=== PATIENT | male | born 1980 | race African-American/Black ===

== ENCOUNTER 2020-02-16 18:56 | Emergency (ER) | payer OTHER ==
--- NOTE | 2020-02-16 20:57 | ER ---
Nurse's Notes [facility] Name: Joshua Hernandez Age: 39 yrs Sex: Male : 1980 Arrival Date: 02/16/2020 Time: 19:00 Bed 20 Private MD: Diagnosis: Presentation: 02/15 19:09 Chief complaint: Patient states: Left sided chest pain, radiates to straight through to jl7 left shoulder blade, increased pain with movement and coughing. Coronavirus screen: Client denies travel out of the [place] in the last 14 days. At this time, the client does not indicate any symptoms associated with coronavirus-19. Ebola Screen: No symptoms or risks identified at this time. Initial Sepsis Screen: Does the patient meet any 2 criteria? No. Patient's initial sepsis screen is negative. Does the patient have a suspected source of infection? No. Patient's initial sepsis screen is negative. Risk Assessment: Do you want to hurt yourself or someone else? Patient reports no desire to harm self or others. Onset of symptoms was February 14, 2020. Care prior to arrival: None. 19:09 Method Of Arrival: Ambulatory [facility] 19:09 Acuity: AMITA 2 jl7 Triage Assessment: 19:12 General: Appears in no apparent distress. uncomfortable, Behavior is calm, cooperative, jl7 appropriate for age. Pain: Complains of pain in anterior aspect of left upper chest Pain radiates to left scapular area Pain currently is 9 out of 10 on a pain scale. Cardiovascular: Patient's skin is warm and dry. Historical: - Allergies: 19:12 No Known Allergies; jl7 - Home Meds: 19:12 None [Active]; jl7 - PMHx: 19:12 None; jl7 - PSHx: 19:12 Hernia repair; jl7 - Immunization history:: Adult Immunizations up to date. - Social history:: Smoking status: Patient reports the use of cigarette tobacco products, smokes one-half pack cigarettes per day. Assessment: 20:53 Reassessment: ER registration said pt left ER at 2045. ca1 Vital Signs: 19:09 BP 126 / 88; Pulse 84; Resp 17; Temp 98.2; Pulse Ox 96% ; Weight 108.86 kg; Height 5 jl7 ft. 7 in. (170.18 cm); Pain 9/10; 19:09 Body Mass Index 37.59 (108.86 kg, 170.18 cm) jl7 ED Course: 19:00 Patient arrived in ED. bp1 19:12 Triage completed. jl7 19:12 Arm band placed on right wrist. Patient placed in waiting room, Patient notified of jl7 wait time. 20:53 Alex Lozada PA is PHCP. kyung 20:53 Adrian Ash MD is Attending Physician. [facility] 20:54 Patient's name was called from ER lobby. No response. Unable to locate patient. Will ca1 disposition as left without being seen by a provider. Administered Medications: No medications were administered Outcome: 20:55 Patient left the ED. ca1 Signatures: Alex Lozada PA PA jmm Leal, Jahala RN RN jl7 Teresa Guidry RN RN ca1 Meron Feldman bp1
[2020-02-16 21:07] VITALS: BP 126/88; TEMP 98.2; O2SAT 96
--- NOTE | 2020-02-17 07:25 | EKG ---
Test Date: 2020-02-16 Test Time: 19:07:23 Field Care Coordinator: PATRICK MEASUREMENT RESULTS: Intervals: Rate: 82 CO: 188 QRSD: 92 QT: 348 QTc: 406 [place]: P: 42 CO: 188 QRS: -1 T: 23 INTERPRETIVE STATEMENTS: Normal sinus rhythm Moderate voltage criteria for LVH, may be normal variant Borderline ECG No previous ECG available for comparison Electronically Signed On 02-17-20 07:23:59 [employer] by Isaiah Soto
--- NOTE | 2020-02-17 21:30 | EDPHYS ---
Physician Documentation [facility] Name: Joshua Hernandez Age: 39 yrs Sex: Male : 1980 Arrival Date: 02/16/2020 Time: 19:00 Bed 20 Private MD: ED Physician Adrian Ash Historical: - Allergies: 02/15 19:12 No Known Allergies; jl7 - Home Meds: 19:12 None [Active]; jl7 - PMHx: 19:12 None; jl7 - PSHx: 19:12 Hernia repair; jl7 - Immunization history:: Adult Immunizations up to date. - Social history:: Smoking status: Patient reports the use of cigarette tobacco products, smokes one-half pack cigarettes per day. Vital Signs: 19:09 BP 126 / 88; Pulse 84; Resp 17; Temp 98.2; Pulse Ox 96% ; Weight 108.86 kg; Height 5 7 ft. 7 in. (170.18 cm); Pain 9/10; 19:09 Body Mass Index 37.59 (108.86 kg, 170.18 cm) [facility] MDM: 20:59 ED course: Patient eloped from the ED prior to evaluation. [facility] 02/15 20:53 Order name: EKG; Complete Time: 20:54 [facility] 02/15 20:53 Order name: Cardiac monitoring [facility] 02/15 20:53 Order name: EKG - Nurse/Tech [facility] 02/15 20:53 Order name: IV Saline Lock [facility] 02/15 20:53 Order name: Labs collected and sent [facility] 02/15 20:53 Order name: O2 Per Protocol [facility] 02/15 20:53 Order name: O2 Sat Monitoring [facility] Administered Medications: No medications were administered Disposition: 02/16 05:54 Co-signature as Attending Physician, Adrian Ash MD. [facility] Disposition: 02/16/20 20:55 Patient left the facility post triage evaluation and consult. - Patient left due to (see nurse's notes). Signatures: Dispatcher [employer] EDMS Alex Lozada PA PA jmm Leal, Jahala, RN RN [facility] Teresa Guidry RN RN ca1 Holmes, Maurice, MD MD [facility]
== END 2020-02-16 20:55 | disposition left against medical advice (07) ==
LOC: ER 18:56
DX: R69 Illness, unspecified (principal); Z53.21 Procedure and treatment not carried out due to patient leaving prior to being seen by health care provider; F17.210 Nicotine dependence, cigarettes, uncomplicated
CPT/HCPCS: 93005; 99281

== ENCOUNTER 2022-09-05 15:29 | Emergency (ER) | payer OTHER ==
--- OUTSIDE RECORDS SUMMARY | 2022-09-05 15:32 | XMS REPORT | Continuity of Care Document ---
:[address] [facility] t Address [address] [place] [address] Care Team Providers Name Role Phone Sharpless Primary Care Physician Provider, [facility] Attending Clinician Unavailable Christie Hickman Attending Clinician CHRISTIE WEAVER Attending Clinician Unavailable XENIA YUAN Attending Clinician Unavailable Payers Payer Name Policy Type Policy Number Effective Date Expiration Date S ource Problems Condition Condition Condition Status Onset Resolution Last Treating Co mments Source Name Details Category Date Date Treatment Clinician Date No known No known Disease Unive rs active active ity of problems problems [facility] Allergies, Adverse Reactions, Alerts Allergy Allergy Status Severity Reaction(s) Onset Inactive Treating Comm ents Source Name Type Date Date Clinician No Known DA Active U 2018-02 [facility] Allergie 02-15 Pearlan s 00:00: d [address] [facility] NO KNOWN Drug Active Univers ALLERGIE Class ity of S [facility] Social History Social Habit Start Date Stop Date Quantity Comments Source Gender identity Ron Mahan alth Sexual orientation [facility] History of tobacco Smokes tobacco [facility] use daily [facility] Tobacco use and 2019-12-09 2019-12-09 Never used Universit y of exposure 00:00:00 00:00:00 [facility] Cigarettes smoked 2018-12-27 2018-12-27 CORRY Patel current (pack per 00:00:00 00:00:00 Medical Center day) - Reported Alcohol intake 2018-12-27 2018-12-27 Current CORRY Conway es 00:00:00 00:00:00 non-drinker of Medical Ce nter alcohol (finding) Sex Assigned At [birth year] CORRY Pagans 00:00:00 00:00:[address] [facility] Smoking Status Start Date Stop Date Source Never smoked tobacco [facility] Current every day smoker 2019-12-09 [facility] Ordered Filled Start Stop Current Ordering Indication Dosage Frequency Signature Comments Components Source Medication Medication Date Date Medication? Clinician (SIG) Name Name sandy 2019-02 Yes [id number] 250mg Take 1 Univers n 250 mg 02-07 tablet by ity of tablet 00:00: mouth [place] 00 daily. Medical Take 500 Branch mg day 1, then 250 mg days 2 to 5. methylPREDN 2019-02 Yes [id number] Take by Univers ISolone 02-07 mouth ity of (MEDROL, 00:00: SEE-INSTRU Franco as VAHID,) 4 mg 00 CTIONS. Medica l tablets follow [facility] package directions promethazin 2019-02 2020- No [id number] 10mL Take 10 mL Univers e-codeine 02-07 by mouth ity o f 6.25-10 00:00: 05:59 every 8 [place] mg/5 mL 00 :00 (eight) Medical syrup hours as Branch needed for Cough for up to 7 days. Indication s: acute pain Vital Signs Vital Name Observation Time Observation Value Comments Source Systolic blood 2019-12-09 19:07:00 129 mm[Hg] Univer sity of pressure [facility] Diastolic blood 2019-12-09 19:07:00 85 mm[facility]Hg] [facility] 2019-12-09 19:07:00 86 /min [facility] Body temperature 2019-12-09 19:07:00 37.17 Mercedes [facility] Respiratory rate 2019-12-09 19:07:00 18 /min [facility] Body height 2019-12-09 19:07:00 170.2 cm [facility] Body weight 2019-12-09 19:07:00 90.719 kg [facility] BMI 2019-12-09 19:07:00 31.32 kg/m2 [facility] Oxygen saturation in 2019-12-09 19:07:00 97 /min University Arterial blood by [facility] Pulse oximetry Branch Procedures This patient has no known procedures. Plan of Care Planned Activity Planned Date Details Comments Source Future Scheduled Test 2022-11-07 00:00:00 IMM Influenza [facility] Seasonal (>/= 19 yrs) [code = IMM Influenza Seasonal (>/= 19 yrs)] Future Scheduled Test 2021-11-07 00:00:00 IMM Influenza [facility] Seasonal (>/= 19 yrs) [code = IMM Influenza Seasonal (>/= 19 yrs)] Future Scheduled Test 1980-03-18 00:00:00 COVID-19 Vaccine (#1) [facility] [code = COVID-19 Vaccine (#1)] Future Scheduled Test 1980-03-18 00:00:00 COVID-19 Vaccine (#1) [facility] [code = COVID-19 Vaccine (#1)] Future Scheduled Test 1980 00:00:00 Fluoride Varnish [facility] [code = Fluoride Varnish] Encounters Start End Encounter Admission Attending Care Care Encounter Source Date/Time Date/Time Type Type Clinicians Facility Department ID 2019-12-09 2019-12-09 Urgent Provider, [facility] [id number] Univers 13:01:32 13:21:32 [id number] [facility] [id number] Franco as Professio [id number] [place] dical [facility] [address] 2019-12-09 2019-12-09 [facility] [id number] Univers 13:00:00 13:00:00 [facility] Results Test Description Test Time Test Comments Results Result Sour e Comments CT, ABDOMEN 2018-12-27 Reason for FINAL REPORT PATIENT 16:39:00 exam:->BACK ID: [id number] CT PAINWhat is the abdomen and pelvis patient's without contrast sedation History: Left flank requirement?->N pain Comparison: o Sedation none Technique: serial axial imaging was performed without intravenous contrast as per departmental protocol. Multiplanar images are reconstructed and reviewed when indicated. This CT examination is performed using one or more of the following dose reduction techniques: Automated exposure control, adjustment of the mA and /or kV according to patient size, and/or use of iterative reconstruction technique. Findings:Evaluation limited by lack of intravenous contrast. Grossly unremarkable appearance of unenhanced liver, gallbladder, pancreas, spleen, and adrenal glands. No urinary calculus. No hydronephrosis. No apparent bladder wall thickening. No small or large bowel obstruction. No apparent bowel wall thickening. No findings to indicate acute appendicitis. No free fluid or adenopathy. No aggressive osseous lesion. Impression:No acute or additional significant findings in the abdomen or pelvis by unenhanced CT scan. Signed: Jeramie Tatum Verified Date/Time: 12/27/2018 16:39:30 Reading Location: [facility] Diagnostic Imaging Reading Room - [place] [address] US DOPPLER 2018-12-27 Reason for FINAL REPORT PATIENT LEG, LEFT 14:51:00 exam:->left ID: [id number] calf pain INDICATION: Left leg (calf) pain. TECHNIQUE: Ultrasound was performed in the veins of the left leg, including color and spectral Doppler exam and compression of the veins with the ultrasound transducer. COMPARISON: None. FINDINGS:The left common femoral, femoral, popliteal, and upper calf veins demonstrate normal compressibility, color-flow, and waveform. The saphenofemoral confluence is patent. IMPRESSION:No deep venous thrombosis in the left leg. Signed: Jose Bergman Verified Date/Time: 12/27/2018 14:51:01 Reading Location: [facility] Mammo Reading Room W/PLT COUNT & AUTO DIFFERENTIAL 2018-12-27 14:29:00 Test Item Value Reference Range Interpretation Comme nts WHITE BLOOD CELL COUNT (BEAKER) (test code = 775) 18.1 K/ L 4.0- 10.0 H RED BLOOD CELL COUNT (BEAKER) (test code = 761) 5.91 M/ L 4.20-5 .80 H HEMOGLOBIN (BEAKER) (test code = 410) 16.5 GM/DL 13.0-16.8 HEMATOCRIT (BEAKER) (test code = 411) 49.8 % 36.0-50.0 MEAN CORPUSCULAR VOLUME (BEAKER) (test code = 753) 84.3 fL 82. 0-99.0 MEAN CORPUSCULAR HEMOGLOBIN (BEAKER) (test code = 751) 27.9 pg 27.0-33.0 MEAN CORPUSCULAR HEMOGLOBIN CONC (BEAKER) (test code = 752) 33.1 GM/DL 32.0-36.0 RED CELL DISTRIBUTION WIDTH (BEAKER) (test code = 412) 13.0 % 12.0-15.0 PLATELET COUNT (BEAKER) (test code = 756) 283 K/CU MM 150-430 MEAN PLATELET VOLUME (BEAKER) (test code = 754) 10.7 fL 6.0-11 .5 NUCLEATED RED BLOOD CELLS (BEAKER) (test code = 413) 0 /100 WBC 0 -0 (MANUAL DIFFERENTIAL)2018-12-27 14:29:00 Test Item Value Reference Range Interpretation Comments NEUTROPHILS - REL (DIFF) (BEAKER) 83 % (test code = 1359) LYMPHOCYTES - REL (DIFF) (BEAKER) 1 % (test code = 1360) EOSINOPHILS - REL (DIFF) (BEAKER) 3 % (test code = 1362) METAMYELOCYTES-REL (DIFF) (BEAKER) 1 % 0-0 H (test code = 258) BANDS - REL (DIFF) (BEAKER) (test 1 % 0-10 code = 1348) ATYPICAL LYMPHOCYTE - REL (DIFF) 11 % 0-0 H (BEAKER) (test code = 260) NEUTROPHILS - ABS (DIFF) (BEAKER) 15.02 K/ L 1.80-8.00 H (test code = 1365) LYMPHOCYTES - ABS (DIFF) (BEAKER) 0.18 K/ L 1.48-4.50 L (test code = 1366) EOSINOPHILS - ABS (DIFF) (BEAKER) 0.54 K/ L 0.00-0.50 H (test code = 1368) METAMYELOCTYES - ABS (DIFF) 0.18 K/ L 0.00-0.00 H (BEAKER) (test code = 261) BANDS-ABS (DIFF) (BEAKER) (test 0.2 K/ L 0.0-0.8 code = 1349) ATYPICAL LYMPHOCYTES - ABS (DIFF) 1.99 K/ L 0.00-0.00 H (BEAKER) (test code = 263) TOTAL COUNTED (BEAKER) (test code 100 = 1351) BANDS + SEGMENTED NEUTROPHILS 15.20 (BEAKER) (test code = 1352) PLT MORPHOLOGY (BEAKER) (test code Normal = 486) RBC MORPHOLOGY (BEAKER) (test code Normal = 762) TOXIC GRANULATION (BEAKER) (test Present code = 771) BASIC METABOLIC [id number] 14:09:00 Test Item Value Reference Range Interpretation Comments SODIUM (BEAKER) 140 meq/L 135-148 (test code = 381) POTASSIUM (BEAKER) 3.5 meq/L 3.6-5.5 L (test code = 379) CHLORIDE (BEAKER) 104 meq/L 98-106 (test code = 382) CO2 (BEAKER) (test 24 meq/L 20-29 code = 355) BLOOD UREA NITROGEN 11 mg/dL 10-26 (BEAKER) (test code = 354) CREATININE (BEAKER) 1.13 mg/dL 0.50-1.20 (test code = 358) GLUCOSE RANDOM 98 mg/dL 70-110 (BEAKER) (test code = 652) CALCIUM (BEAKER) 10.1 mg/dL 8.5-10.5 (test code = 697) EGFR (BEAKER) (test 88 mL/min/1.73 ESTIMA BATSHEVA GFR IS code = 1092) sq m NOT ACCURATE CREATININE CLEARANCE IN PREDICTING GLOMERULAR FILTRATION RATE . ESTIMATED GFR I S NOT APPLICABLE FOR DIALYSIS PATIEN TS. URINALYSIS W/ [id number] 13:50:00 Test Item Value Reference Range Interpretation Comments COLOR (BEAKER) (test code = 470) Yellow CLARITY (BEAKER) (test code = 469) Clear SPECIFIC GRAVITY UA (BEAKER) (test 1.020 1.001-1.035 code = 468) PH UA (BEAKER) (test code = 467) 8.0 5.0-8.0 PROTEIN UA (BEAKER) (test code = Negative Negative 464) GLUCOSE UA (BEAKER) (test code = Negative Negative 365) KETONES UA (BEAKER) (test code = Negative Negative 371) BILIRUBIN UA (BEAKER) (test code = Negative Negative 462) BLOOD UA (BEAKER) (test code = Negative Negative 461) NITRITE UA (BEAKER) (test code = Negative Negative 465) LEUKOCYTE ESTERASE UA (BEAKER) Negative Negative (test code = 466) UROBILINOGEN UA (BEAKER) (test 1.0 mg/dL 0.2-1.0 code = 463) BACTERIA (BEAKER) (test code = Occasional 517) MUCUS (BEAKER) (test code = 1574) Occasional RBC UA-MANUAL (BEAKER) (test code 5-10 /HPF = 1659) WBC UA-MANUAL (BEAKER) (test code <5 /HPF = 1661) SQUAMOUS EPITHELIAL MANUAL <5 /HPF (BEAKER) (test code = 1663) SOURCE(BEAKER) (test code = 2795) RAD, SPINE, LUMBAR, 2 OR 3 [id number] 13:16:00Reason for exam:->back painFINAL REPORT INDICATION:Low back pain. COMPARISON: None. TECHNIQUE: Lumbar spine radiograph three views. FINDINGS / IMPRESSION:Lumbar alignment is normal. Intervertebral disc spaceis preserved and vertebral body heights maintained. In summary, normal lumbar spine radiograph. Signed: Jose Bergmaneport Verified Date/Time: 12/27/2018 13:16:22 Reading Location: [facility] Reading Room Notes Date/Time Note Provider Source 2018-12-16 10:02:00-00:00 [facility] ([facility]) EMERGENCY PROVIDER REPORT REPORT#:[id number] REPORT STATUS: Signed DATE:12/16/18 TIME:1002 PATIENT: MANUEL WEAVER UNIT #: [id number] ROOM/BED: : 79 AGE: 38 SEX: M PCP PHYS: No Primar y or Family Physician SERVICE AUTHOR: Josr Jimenez MD * ALL edits or amendments must be made on the el ectronic/computer document * HPI-Back Pain Under 40 General Confirmed Patient Yes Patient Type New patient Date/Time Seen by Provider 12/16/18 0954 Presentation Chief Complaint Pain, back Hx Obtained From Patient )( Sudden in Onset? No Onset Occurred Days ago (3) Symptom Duration Since onset Progression since Onset Unchanged Caused by No trauma by history Location L lower back Quality Painful Radiation Leg L, below knee. Migration/Movement None Severity: Onset Mild Severity: Current Mild Associated with Reports: Numbness, lower ext L. Denies: Abdomina l pain, Chest pain, Cough, Fever, Incontinence bladder, Incontinence bowel, Nausea, Vomiting, Weakness, both lower ext. Associated Other Pt denies other symptoms Exacerbated by Nothing Relieved by Nothing Free Text HPI Notes Free Text HPI Notes 38 y/o M with PMHx of HTN p/w L lower ba ck pain x 3 days with radiation down L leg and numbness. Pt. notes similar sxs with hx of sciatica. He took Tylenol #3 with no relief to sxs. Pt. notes sxs previously relieved with steroids. No further sxs were stated. Denies N/V, fev er, abdominal pain, weakness, dysuria, hematuria, bladder incontinence and saddle anest hesia. Portions of this section were scribed by Melanie Espinosa on 12/16/18 at 1012 Review of Systems ROS Statements All systems rev neg except as marked. Basic Review of Systems Basic ROS EYES: No redness, ENT: No sore throat, SKIN: No rash, PSYCH: NL thought content Focused Review of Systems Constitutional Denies: Chills, Fatigue, Fever, Weakness - gener alized. Respiratory Denies: Cough, non-productiv e, Cough, productive, Dyspnea on exertion, Shortness of breath, Wheezing. Cardiovascular Denies: Chest pain, Dyspnea on exertion, Edema, Syncope. GI Denies: Abdominal pain, Diarrhea, Nausea, Vomiti ng. Male Denies: Dysuria, Flank pain. Musculoskeletal Reports: Back pain, Extremity pain. Denies: Extr emity swelling. Hematologic Denies: Bleeding, Bruising. Neurologic Reports: Numbness. Denies: Dizziness, Generalize d weakness, Headache. Portions of this section were scribed by Melanie Espinosa on 12/16/18 at 1002 Past Medical History - Adult Stated Complaint SCIATICA Allergies Coded Allergies: No Known Allergies (12/16/18) Review of Nursing Notes Rev avail, and agree Pt reports no significant: Past surgical history Past Medical History: Reports: Hypertension. Additional Medical History Sciatica Other Social History Local resident, Good social support Ambulatory Status Independent Portions of this section were scribed by Melanie Espinosa on 12/16/18 at 1012 Physical Exam Vital Signs Vital Signs First Documented: Result Date Time Pulse Ox 99 12/16 1001 B/P 163/101 12/16 1002 B/P Mean 121 12/16 1001 O2 Delivery Room air 12/16 1002 Temp 98.6 12/16 1001 Pulse 72 12/16 1002 Resp 18 12/16 1002 Last Documented: Result Date Time Pulse Ox 99 12/16 1001 B/P 163/101 12/16 1001 B/P Mean 121 12/16 1001 O2 Delivery Room air 12/16 1001 Temp 98.6 12/16 1001 Pulse 72 12/16 1001 Resp 18 12/16 1001 Review of Vital Signs Reviewed Focused PE General/Const General/Const Awake, Alert, No acute distress MS Neck Neck Atraumatic, Supple, Full range of motion, No adenopathy Resp/Chest Respiratory/Chest Atraumatic, Breath sounds NL, Breath sounds = bilat, No respiratory distress Cardiovascular Cardiovascular Heart rate NL, Regular rhythm Abdomen/GI Abdomen/GI Atraumatic, Soft, Non-tender MS Back Back Atraumatic, Inspection NL, Full range of m otion Text/Dict Notes TTP to L lower back no saddle anesthesia MS Lower Extrem Lower Ext/Pelvis/MS Atraumatic, Inspection NL, Full range of motion, No swelling, Neurologic intact, Vascular intact Neurologic Neurologic Oriented X3, Speech NL, No motor def icits, No sensory deficits Portions of this section were scribed by Melanie Espinosa on 12/16/18 at 1012 Interpretation Diagnostics Point of Care Testing Pulse Oximetry Pulse Ox % 99 On: Room air Interpretation Interpreted by me, Pulse oximetr y normal Time 1002 Portions of this section were scribed by Melanie Espinosa on 12/16/18 at 1012 Re-Evaluation MDM Re-Evaluation/Progress Re-Evaluation/Progress Time of Re-Eval 1010 Re-Eval Status Improved ED Course Medication(s) Ordered Medication(s) Ordered: Central Nervous System Agents Sig/Abdirizak Start time Last Medication Dose Route Stop Time Status Admin Ketorolac 60 MG X1ED STA 12/16 1001 DC 12/16 Tromethamine IM 12/16 1001 1008 Portions of this section were scribed by Melanie Espinosa on 12/16/18 at 1012 Patient Discharge Departure Vital Signs/Condition Vital Signs First Documented: Result Date Time Pulse Ox 99 12/16 1001 B/P 163/101 12/16 1002 B/P Mean 121 12/16 1001 O2 Delivery Room air 12/16 1002 Temp 98.6 12/16 1001 Pulse 72 12/16 1002 Resp 18 12/16 1002 Last Documented: Result Date Time Pulse Ox 99 12/16 1002 B/P 163/101 12/16 1002 B/P Mean 121 12/16 1002 O2 Delivery Room air 12/16 1002 Temp 98.6 12/16 1002 Pulse 72 12/16 1002 Resp 18 12/16 1002 All vital signs available at the time of this en try have been reviewed. Condition Stable Clinical Impression Clinical Impression Primary Impression: Sciatica Disposition Decision Discharge )( Discharged to Home Yes )( Time 1011 )( Date 12/16/18 Discharge/Care Plan Counseled Regarding Diagnosi s, Prescriptions, Need for follow-up, When to return to ED Prescriptions Prednisone Prescriptions Reviewed Risks, Benefits, Alternat billy treatment Discharge Note I have spoken with the patie nt and/or caregivers. I have explained the patient's condition, diagnoses and veronica atment plan based on the information available to me at this time. I have answered the patient's and/ or caregiver's questions and addressed any concerns. The patient and/or careg deja have as good an understanding of the patient 's diagnosis, condition and treatment plan as can be expected at this point. The vital signs have bee n stable. The patient's condition is stable and appr opriate for discharge from the emergency department. The patient will pursue further outpatient evalu ation with the primary care physician or other designated or consulting phys ician as outlined in the discharge instructions. The patient and/or caregivers are agreeable to this plan of care and follow-up instructions have been exp lained in detail. The patient and/or caregivers have received these instructio ns in written format and have expressed an understanding of the discharge inst ructions. The patient and/or caregivers are aware that any significant change in condition or worsening of symptoms should prompt an immediate return to [facility] or the closest emergency department or a call to 911. Supervising Physician Note Scribe Statement Melanie Espinosa, 12/16/18 1002, scribing for and i n the presence of Dr. Jimenez. Signed By: Melanie Espinosa, 12/16/18 1002 Provider Scribed Statement I personally performed the s ervices described in this documentation and reviewed the documentation that was dictated to the scrib e(s) in my presence, and it accurately records my words and actions. Josr Jimenez, 12/17/18 Portions of this section were scribed by Melanie Espinosa on 12/16/18 at 1012 at 1001 RPT #: [id number] END OF REPORT
--- NOTE | 2022-09-05 15:58 | EDPHYS ---
Physician Documentation [facility] Name: Joshua Hernandez Age: 41 yrs Sex: Male : 1980 Arrival Date: 09/05/2022 Time: 15:29 Bed 20 Private MD: ED Physician Greg Post HPI: 09/05 16:00 This 41 yrs old Black Male presents to ER via Ambulatory with complaints of Leg Pain. ms3 16:00 41-year-old male with past medical history of sciatica presents for left-sided low back ms3 pain. Patient states pain radiates to his left leg. Patient rates pain a 9/10 describes it as shooting. Patient states he believes the pain to be from sleeping on a truck a mattress that was too thick. Patient states he has had this occur in the past when sleeping on thick mattress.. Historical: - Allergies: 15:41 No Known Allergies; cm10 - Home Meds: 15:41 None [Active]; cm10 - PMHx: 15:41 None; cm10 - PSHx: 15:41 None; cm10 - Immunization history:: Adult Immunizations unknown. - Social history:: Smoking status: Patient reports the use of cigarette tobacco products, denies chronic smoking, but will smoke occasionally. ROS: 16:00 Constitutional: Negative for fever, and chills. Neck: Negative for injury, pain, and ms3 swelling, Cardiovascular: Negative for chest pain, and palpitations. Respiratory: Negative for shortness of breath, cough, wheezing, and pleuritic chest pain, Abdomen/GI: Negative for abdominal pain, nausea, vomiting, diarrhea, and constipation. 16:00 Skin: Negative for injury, rash, and discoloration. 16:00 Back: Positive for Back pain. 16:00 All other systems are negative. Exam: 16:00 Constitutional: This is a well developed, well nourished patient who is awake, alert, ms3 and in no acute distress. Head/Face: Normocephalic, atraumatic. Neck: Trachea midline, no cervical lymphadenopathy. Supple, full range of motion without nuchal rigidity, or vertebral point tenderness. No Meningismus. Chest/axilla: Normal chest wall appearance and motion. Nontender with no deformity. Cardiovascular: Regular rate and rhythm with a normal S1 and S2. No gallops, murmurs, or rubs. Normal PMI, no JVD. No pulse deficits. Respiratory: Lungs have equal breath sounds bilaterally, clear to auscultation and percussion. No rales, rhonchi or wheezes noted. No increased work of breathing, no retractions or nasal flaring. Abdomen/GI: Soft, non-tender, with normal bowel sounds. No distension or tympany. No guarding or rebound. No evidence of tenderness throughout. 16:00 Back: pain, that is mild, of the left low back, ROM is painful, with rotation to the right, with rotation to the left, normal spinal alignment noted, vertebral tenderness, is not appreciated, muscle spasm, is appreciated in the left low back. Vital Signs: 15:40 BP 145 / 100; Pulse 83; Resp 18; Temp 97.3(TE); Pulse Ox 100% ; Weight 99.79 kg; Height cm10 5 ft. 7 in. ; Pain 9/10; 15:40 Body Mass Index 34.46 (99.79 kg, 170.18 cm) cm10 15:40 Pain Scale: Adult cm10 MDM: 15:56 Patient medically screened. ms3 16:00 Data reviewed: vital signs, nurses notes, and as a result, I will discharge patient. I ms3 considered the following discharge prescriptions or medication management in the emergency department Medications were administered in the Emergency Department. See MAR. Test considered but Not performed: X-ray: Patient with previous hx of sciatica. Patient without hx of trauma. Counseling: I had a detailed discussion with the patient and/or guardian regarding: the historical points, exam findings, and any diagnostic results supporting the discharge/admit diagnosis, the presence of at least one elevated blood pressure reading (>120/80) during this emergency department visit, the need for outpatient follow up, to return to the emergency department if symptoms worsen or persist or if there are any questions or concerns that arise at home. Special discussion: I discussed with the patient/guardian in detail that at this point there is no indication for admission to the hospital. It is understood, however, that if the symptoms persist or worsen the patient needs to return immediately for re-evaluation. ED course: Patient states he would like medications and be discharged from the emergency department. Patient given Flexeril and ibuprofen in the emergency department. Patient to follow-up with primary care physician to 3 days. Patient understands agrees with plan. All questions were answered. Return precautions discussed include worsening symptoms, numbness, weakness, bowel or bladder incontinence, or any other concerns. On exam patient is alert and orient x4, no apparent distress, nontoxic-appearing, ambulatory in the emergency department. Patient denies bowel/bladder incontinence, fevers, chills, IV drug use. Administered Medications: 16:07 Drug: Cyclobenzaprine PO 10 mg Route: PO; ll1 16:14 Follow up: Response: No adverse reaction ll1 16:07 Drug: Ibuprofen PO 600 mg Route: PO; ll1 16:14 Follow up: Response: No adverse reaction ll1 16:13 Drug: Dexamethasone IM 10 mg Route: IM; Site: left vastus lateralis; ll1 16:15 Follow up: Response: No adverse reaction ll1 Disposition Summary: 09/05/22 15:57 Discharge Ordered Location: Home ms3 Condition: Stable ms3 Diagnosis - Sciatica, left side ms3 Discharge Instructions: - Discharge Summary Sheet ms3 - Sciatica ms3 Forms: - Medication Reconciliation Form ms3 - Thank You Letter ms3 - Antibiotic Education ms3 - Prescription Opioid Use ms3 - Patient Portal Instructions ms3 Prescriptions: - Ibuprofen 600 mg Oral Tablet - take 1 tablet by ORAL route every 6 hours As needed take with food; 30 tablet; ms3 Refills: 0, Product Selection Permitted - Cyclobenzaprine 10 mg Oral Tablet - take 1 tablet by ORAL route every 8 hours As needed; 30 tablet; Refills: 0, ms3 Product Selection Permitted Signatures: Kimberly Miller RN RN ll1 Greg Post DO DO ms3 Cindy Stephen RN RN cm10
--- NOTE | 2022-09-05 15:58 | ER ---
Nurse's Notes [facility] Name: Joshua Hernandez Age: 41 yrs Sex: Male : 1980 Arrival Date: 09/05/2022 Time: 15:29 Bed 20 Private MD: Diagnosis: Sciatica, left side Presentation: 09/05 15:40 Chief complaint: Patient states: "My sciatica is acting up." Pt complaining of left leg cm10 pain onset 3 days ago. Pt denies any trauma or injury. Coronavirus screen: Vaccine status: Patient reports being unvaccinated. Client denies travel out of the [place] in the last 14 days. Ebola Screen: Patient denies travel to an Ebola-affected area in the 21 days before illness onset. No symptoms or risks identified at this time. Initial Sepsis Screen: Does the patient meet any 2 criteria? No. Patient's initial sepsis screen is negative. Does the patient have a suspected source of infection? No. Patient's initial sepsis screen is negative. Risk Assessment: Do you want to hurt yourself or someone else? Patient reports no desire to harm self or others. Onset of symptoms was September 02, 2022. 15:40 Method Of Arrival: Ambulatory cm10 15:40 Acuity: AMITA 4 cm10 Historical: - Allergies: 15:41 No Known Allergies; cm10 - Home Meds: 15:41 None [Active]; cm10 - PMHx: 15:41 None; cm10 - PSHx: 15:41 None; cm10 - Immunization history:: Adult Immunizations unknown. - Social history:: Smoking status: Patient reports the use of cigarette tobacco products, denies chronic smoking, but will smoke occasionally. Screenin:13 [facility] ED Fall Risk Assessment (Adult) Impaired Gait Yes (1 pt) Mobility Assist ll1 Device Used Yes (1 pt) Score/Fall Risk Level 3 or more points = High Risk Oriented to surroundings, Maintained a safe environment, Educated pt \\T\\ family on fall prevention, incl call for assistance when getting out of bed, Hourly rounding (assess needs \\T\\ fall precautionary measures) done, Used ambulatory aids as needed (educated on \\T\\ assisted with), Implemented a Fall Risk Plan of Care, Utilized family, sitter, or virtual corporate safety manager as indicated. Abuse screen: Denies threats or abuse. Nutritional screening: No deficits noted. Tuberculosis screening: No symptoms or risk factors identified. Assessment: 16:13 General: Appears uncomfortable, Behavior is calm, cooperative, appropriate for age. ll1 Pain: Complains of pain in left leg and left low back Quality of pain is described as aching, sharp, throbbing. Musculoskeletal: Circulation, motion, and sensation intact. Capillary refill < 3 seconds, Reports pain in left leg and left low back. Vital Signs: 15:40 BP 145 / 100; Pulse 83; Resp 18; Temp 97.3(TE); Pulse Ox 100% ; Weight 99.79 kg; Height cm10 5 ft. 7 in. ; Pain 9/10; 15:40 Body Mass Index 34.46 (99.79 kg, 170.18 cm) cm10 15:40 Pain Scale: Adult cm10 ED Course: 15:30 Patient arrived in ED. rg4 15:32 Greg Post DO is Attending Physician. ms3 15:41 Triage completed. cm10 15:42 Arm band placed on Patient placed in an exam room, on a stretcher. cm10 16:03 Kimberly Miller, RN is Primary Nurse. ll1 16:14 Provided Education on: n/a. ll1 16:14 Patient has correct armband on for positive identification. Bed in low position. Call ll1 light in reach. Cardiac monitoring not applicable on this patient. 16:14 No provider procedures requiring assistance completed. Patient did not have IV access ll1 during this emergency room visit. Administered Medications: 16:07 Drug: Cyclobenzaprine PO 10 mg Route: PO; ll1 16:14 Follow up: Response: No adverse reaction ll1 16:07 Drug: Ibuprofen PO 600 mg Route: PO; ll1 16:14 Follow up: Response: No adverse reaction ll1 16:13 Drug: Dexamethasone IM 10 mg Route: IM; Site: left vastus lateralis; ll1 16:15 Follow up: Response: No adverse reaction ll1 Medication: 16:14 VIS not applicable for this client. ll1 Outcome: 15:57 Discharge ordered by . ms3 16:14 Discharged to home via wheelchair. ll1 16:14 Condition: stable 16:14 Discharge instructions given to patient, family, Instructed on discharge instructions, follow up and referral plans. no driving heavy equipment, medication usage, Demonstrated understanding of instructions, follow-up care, medications, Prescriptions given X 2. 16:15 Patient left the ED. ll1 Signatures: Meena Sullivan rg4 Kimberly Miller, RN RN ll1 Greg Post DO DO ms3 Cindy Stephen, RN RN cm10
[2022-09-05] MEDS ORDERED: CYCLOBENZAPRINE 10 MG TAB ONE (16:08)
[2022-09-05] MEDS ORDERED: IBUPROFEN 400 MG TAB ONE (16:08)
[2022-09-05] MEDS ORDERED: IBUPROFEN 200 MG TAB PO ONE (16:08)
[2022-09-05] MEDS ORDERED: dexAMETHasone 10 MG/ML VIAL ONE (16:18)
[2022-09-05 16:20] VITALS: BP 145/100; TEMP 97.3; O2SAT 100
== END 2022-09-05 16:15 | disposition home or self-care (01) ==
LOC: ER 15:29
DX: M54.32 Sciatica, left side (principal)
CPT/HCPCS: 96372; 99284; J1100